=== PATIENT | female | born 1985 | race Two or more races ===

== ENCOUNTER 2017-07-17 14:48 | Emergency (ER) | payer OTHER ==
[~2017-07-17] VITALS: Ht 162.6 cm; Wt 61.2 kg
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
[2017-07-17] MEDS ORDERED: LIDOCAINE HCL/MPF 1% 30 ML VIAL IJ ONE (15:17)
[2017-07-17] MEDS ORDERED: LIDOCAINE 0.5%-EPI 1:200,000 50 ML VIAL ONE (15:18)
[2017-07-17] MEDS ORDERED: LIDOCAINE 1%-EPI 1:100,000 50 ML VIAL IJ ONE (15:30)
--- NOTE | 2017-07-17 16:38 | NUR ---
Patient discharged to home in stable condition. Written and verbal after care instructions given. Patient verbalizes understanding of instruction.
[2017-07-17 16:40] VITALS: BP 118/84
== END 2017-07-17 16:41 | disposition home or self-care (01) ==
LOC: ER 14:51
DX: L05.91 Pilonidal cyst without abscess (principal)
CPT/HCPCS: 10080; 99284; A4606; A6403; A6407; J3490; Z7610

== ENCOUNTER 2017-07-19 20:48 | Emergency (ER) | payer OTHER ==
[~2017-07-19] VITALS: Ht 162.6 cm; Wt 59.0 kg
[2017-07-19 21:51] VITALS: BP 113/58
== END 2017-07-19 23:48 | disposition home or self-care (01) ==
LOC: ER 20:52
DX: Z48.817 Encounter for surgical aftercare following surgery on the skin and subcutaneous tissue (principal); L05.91 Pilonidal cyst without abscess
CPT/HCPCS: A4606; A6253; Z7610